=== PATIENT | male | born 1965 | race African-American/Black ===

== ENCOUNTER 2017-07-18 22:40 | Observation (INO) | payer SELFPAY ==
[2017-07-18] MEDS ORDERED: Aspirin Low Dose CHEW TAB* 81 MG PO ONE (22:52)
[2017-07-18] MEDS ORDERED: Warfarin TAB(*) 10 MG PO ONE (23:00)
[2017-07-18] MEDS ORDERED: Clopidogrel TAB* 75 MG PO ONE (23:00)
[2017-07-18] MEDS ORDERED: Metoprolol Tartrate TAB* 25 MG PO ONE (23:01)
[2017-07-18 23:21] LABS: Hematocrit 44 % (42-52); Hemoglobin 14.9 g/dl (14.0-18.0); Mean Corpuscular HGB Conc 34 g/dl (31-36); Mean Corpuscular Hemoglobin 35 pg (27-31); Mean Corpuscular Volume 102 fL (80-94); Mean Platelet Volume 10 um3 (7.4-10.4); Red Blood Count 4.29 10^6/ul (4.0-5.4); Red Cell Distribution Width 13 % (10.5-15); White Blood Count 5.1 10^3/ul (3.5-10.8)
[2017-07-18 23:35] LABS: Albumin 4.2 g/dL (3.2-5.2); BUN/Creatinine Ratio 15.8 (8-20); Calcium 9.4 mg/dL (8.6-10.3); EGFR African American 86.4 (>60); EGFR Non-African American 67.2 (>60); Globulin 3.7 g/dL (2-4); Potassium 3.4 mmol/L (3.5-5.0); Total Bilirubin 1.4 mg/dL (0.2-1.0); Total Protein 7.9 g/dL (6.4-8.9)
[2017-07-18 23:36] LABS: Troponin I 0.01 ng/mL (<0.04)
[2017-07-19] MEDS ORDERED: hydrALAZINE IV* 20 MG/ML VIAL IV SLOW PU ONE ×2 (00:37→01:59)
[2017-07-19] MEDS ORDERED: Ondansetron INJ* 2 MG/ML VIAL IV PRN (00:38)
[2017-07-19] MEDS ORDERED: Nicotine PATCH 21 MG/24 HR* PATCH TRANSDERM ONE (00:48)
[2017-07-19] MEDS ORDERED: Nicotine Inhaler* 10 MG AMP INH PRN (00:48)
[2017-07-19] MEDS ORDERED: Enoxaparin(*) 40 MG/0.4 ML SYR SUBCUT SCH (01:00)
[2017-07-19] MEDS ORDERED: hydrALAZINE IV* 20 MG/ML VIAL ONE (02:12)
--- NOTE | 2017-07-19 03:10 | HP ---
HISTORY AND PHYSICAL: DATE OF ADMISSION: 07/19/17 PRIMARY CARE PROVIDER: Previously, Dr. Smith, no longer followed. BRAKE REPAIRER HYDRAULIC: Previously, Dr. Osborne, last seen in 2013. HEALTHCARE PROXY: Two friends, Latisha Lundberg and Debbie Toribio. CODE STATUS: DNR. Discussed with patient. MOLST filled out. SOURCE OF INFORMATION: History obtained from interview with patient and his close friend, Latisha, review of past medical records. RELIABILITY: Fair. CHIEF COMPLAINT: Chest pressure. HISTORY OF PRESENT ILLNESS: This is a 51-year-old man with past medical history of CAD, stent to his LAD in 2005, and then again stent to lower branch of bifurcating second obtuse marginal in 2013, had been in his usual state of health; however, has discontinued all of his medications except for aspirin and Plavix, has been lost to medical care since the time of his last stenting in 2013. Four days prior to presentation, he was at work as a cook, felt overheated and stressed, developed chest pressure like a squeezing, substernal, not radiating, not associated with nausea, vomiting, or light-headedness and walked into the cooler, which helped but did not relieve the chest pressure. Attempted nitro sublingual without help. He says the pain only lasted for minutes; however, the story as indicated above would indicate that it lasted for longer with going into the cooler and then taking nitro as well. The following day, he had a similar episode at work where he felt overheated and stressed and again developed chest pressure, walked into the cooler with some improvement. He indicates that the chest pressure lasted for approximately 30 seconds. Two days prior to presentation, he had no additional symptoms and today again no additional symptoms; however, discussed symptomatology with his friend Latisha who encouraged him to present to the emergency room today. He denies any orthopnea or PND. No fevers, chills, shortness or breath, lightheadedness, nausea, or vomiting. There has been no changes in his medications except for discontinuation of his previous medications, which did include lisinopril, lovastatin, and atenolol as he only continues Plavix and aspirin at this time. PAST MEDICAL HISTORY: Includes CAD with LAD stent in 2005 and stent to the lower branch of bifurcating second obtuse marginal in 2013, hypertension, hyperlipidemia. MEDICATIONS: 1. Plavix 75. 2. Aspirin 81. 3. Nitro sublingual 0.4 mg as needed. ALLERGIES: No known drug allergies. FAMILY HISTORY: No history of CAD. Mother and father with hypertension. SOCIAL HISTORY: 1. Active tobacco use: One pack per day for 40 years. 2. Alcohol: Active alcohol use, 30 beers per week. Denied all illicits. Currently employed as a cook at [employer]. REVIEW OF SYSTEMS: As per HPI. Otherwise, all other systems negative. PHYSICAL EXAMINATION GENERAL: Appears stated age, interactive, pleasant, in no apparent distress. VITAL SIGNS: In the emergency room, 181/109, heart rate 82, respiratory rate 16 , 99% on room air, T-max 97.1. HEENT: Oropharynx is clear. He has moist mucous membranes. Poor dentition. NECK: Nonelevated JVD. No cervical or supraclavicular lymphadenopathy. LUNGS: Clear to auscultation. HEART: He has regular rate and rhythm. No murmurs, rubs, or gallops. ABDOMEN: Soft, nontender, nondistended. EXTREMITIES: Warm and well perfused without clubbing, cyanosis or edema. NEUROLOGIC: He is alert and oriented x3. He has no apparent anxiety, agitation , or depression. DIAGNOSTIC STUDIES/LAB DATA: Labs reviewed. Total bilirubin 1.4, AST 40, ALT 33. Troponin I 0.01. Lactic acid 1.5. Hemoglobin is 14.9 with a MCV of 102, platelets 141. Data reviewed. EKG is normal sinus rhythm, ventricular rate of 69, normal limit axis, normal R-wave progression, no ST or T-wave changes. Chest x-ray: No active cardiopulmonary disease on this author's read, office read is still pending. ASSESSMENT AND PLAN: This is a 51-year-old man with known history of coronary artery disease status post 2 stents, last 2013; uncontrolled hypertension; active tobacco use, presented to the hospital with several episodes of chest pressure concerning for unstable angina. 1. Unstable angina. Currently, chest pain and pressure have resolved. We will not heparinize at this time. We will cycle troponins and plan on x-ray of the chest tomorrow. Check lipids in the morning as well as add on hemoglobin A1C to ED labs. Certainly high risk for in-stent restenosis or progressive atherosclerotic disease in the setting of continued tobacco use, high alcohol use, as well as discontinuation of previous medications. The patient does indicate he has continued Plavix and aspirin, although had indicated to the ED physician that he was inconsistent with the administration of his Plavix. 2. Hypertension. Hydralazine IV 5 mg now. Restart lisinopril at a higher dose 20 mg tomorrow, likely needs to titrate with the addition of a beta- steve after the stress test. 3. Hyperlipidemia. Check fasting lipids in the morning. Suspect we will need reinstitution of statin, especially in the setting of known coronary artery disease. 4. Code status. DNR. MOLST filled out. [id number]/[facility] #: [id number] MTDPresley
[2017-07-19 05:27] LABS: HDL Cholesterol 35.6 mg/dL
--- NOTE | 2017-07-19 07:33 | RAD ---
INDICATION: Chest pain. COMPARISON: Comparison is made with a prior portable chest x-ray study from December 18, 2013. TECHNIQUE: A portable view of the chest was obtained. FINDINGS: The heart is within normal limits in size. The thoracic aorta appears mildly tortuous and ectatic. The lungs are clear. No pleural effusion is seen. IMPRESSION: NO EVIDENCE FOR ACUTE DISEASE.
[2017-07-19] MEDS ORDERED: Clopidogrel TAB* 75 MG PO SCH (09:00)
[2017-07-19] MEDS ORDERED: Lisinopril TAB* 10 MG PO SCH ×2 (09:00)
[2017-07-19] MEDS ORDERED: Aspirin EC Low Dose* 81 MG TAB.EC PO SCH (09:00)
--- NOTE | 2017-07-19 13:08 | RAD ---
Edited for charges. Indication: Chest pain. Myocardial perfusion scan was performed utilizing 1 day protocol. 10.6 mCi of technetium 99m tetrofosmin was injected for the rest portion of the study. 25.6 mCi of technetium 99m Myoview was then injected for the stress portion of study.. There is homogeneous distribution of the radiotracer throughout the left ventricle. No evidence of fixed or reversible perfusion defects identified. The ejection fraction at stress is 45%. No focal wall motion abnormality is noted. IMPRESSION: No evidence of fixed or reversible perfusion defect is identified. ASSESSMENT: Low risk Based on imaging criteria from ACC/AHA 2002 Guideline Update for the Management of Patients With Chronic Stable Angina Table 23. Noninvasive Risk Stratification. MTDD
[2017-07-19 15:16] VITALS: BP 153/96
[2017-07-19] MEDS ORDERED: Nicotine Patch Removal NOTE FOLLOW UP SCH (21:00)
--- NOTE | 2017-07-20 02:39 | DS ---
CC: Dr. Smith * DISCHARGE SUMMARY: DATE OF ADMISSION: 07/19/17 DATE OF DISCHARGE: 07/19/17 DISCHARGE DIAGNOSES: 1. Chest pain, acute coronary syndrome ruled out. 2. Uncontrolled hypertension. 3. Hyperlipidemia. SECONDARY DIAGNOSES: 1. Coronary artery disease, status post LAD stent in 2005 and a stent to the OM in 2013. 2. Hypertension. 3. Hyperlipidemia. MEDICATION LIST: 1. Aspirin 81 mg p.o. daily. 2. Plavix 75 mg p.o. daily. New medications: 1. Lisinopril 10 mg p.o. daily. 2. Lovastatin 20 mg p.o. daily. 3. Metoprolol tartrate 25 mg p.o. b.i.d. HOSPITAL COURSE: Mr. Sampson is a 51-year-old male with a past medical history as stated above that presented to the emergency room with complaints of chest pressure that he developed while he was working and felt overheated and stressed. The patient works as a cook at [employer] and states that he was feeling overwhelmed as they were short staffed. He states that he opened the fridge sitting front of it and had relief of his symptoms. Unfortunately, the patient has lost his insurance coverage so he has not followed with Dr. Osborne or Dr. Smith anymore, but he states that he continues to take aspirin and Plavix, but stopped taking all of his other medications. For more details of his presentation, I refer you to his history and physical. He was admitted to the telemetry floor where he had serial troponins that were negative. The patient underwent exercise Myoview stress test that showed no evidence of a fixed or reversible perfusion defect and ejection fraction was 45%. His laboratory tests showed triglycerides of 406, total cholesterol of 136, but his LDL could not be calculated due to his triglycerides. Also of note is the fact that on admission his blood pressure was 181/109. My impression is that his symptoms were likely secondary to uncontrolled hypertension. The patient was advised about the importance of compliance with treatment. He is aware of his blood pressure level and also about the elevation of his triglycerides. He is in agreement with taking medications from the 4-dollar list from [employer] and he will also be seen by social professionals to assist him with arrangements for insurance. The patient received dietary education. He also received tobacco cessation encouragement. He states that he has cut down to 5 cigarettes a week and he continues his efforts to quit smoking. He is medically stable to be discharged home today. PHYSICAL EXAMINATION: Vital Signs: Temperature 98.2, heart rate is 90, respiratory rate is 20, oxygen saturation is 100% on room air, blood pressure is 153/96. General: The patient is a pleasant, middle-aged gentleman, sitting up in bed, in no acute distress. CVS: Normal S1, S2. Regular rate and rhythm. Chest: Breath sounds present bilaterally with no added sounds. Extremities: No edema. Neuro: He is alert, awake, and oriented x3. Able to move all 4 extremities. DIET: Heart-healthy diet. ACTIVITY: As tolerated. DISPOSITION: To home. STATUS WHILE IN THE HOSPITAL: Observation. The patient was advised that if he continues to be noncompliant with his medications and if he continues to smoke, he is at a great risk for further heart disease, lung disease, cancer, and . He verbalized understanding of the risks. Please keep in mind this is a summarized version of this patient's hospital stay. If you need more information, please feel free to call me at [phone] or please obtain the full medical records. TIME SPENT: Approximately 45 minutes were spent to complete this discharge. [id number]/[facility] #: [id number] MTDPresley
--- NOTE | 2017-07-23 12:03 | ED ---
Bart Garcia Alfonso, scribed for Aydin Auguste MD on 07/18/17 at 2302 . HPI Chest Pain - HPI Summary HPI Summary: This patient is a 51 year old M presenting to [facility] accompanied by female with a chief complaint of CP since a few days ago. The CC is described as intermittent. The CP does not radiate. The patient rates the pain 5/10 in severity. Symptoms aggravated by stress and heat. Symptoms alleviated by nothing. Sx not alleviated by NTG. He reports medication noncompliance today. Tobacco abuse disorder. He drank ETOH tonight (2-3 drinks). PMHx includes CAD ( two ID). - History of Current Complaint Chief Complaint: EDChestPainROMI Time Seen by Provider: 07/18/17 22:52 Hx Obtained From: Patient Onset/Duration: Started Days Ago, Still Present Timing: Constant Initial Severity: Moderate Current Severity: Moderate Pain Intensity: 5 Pain Scale Used: 0-10 Numeric Aggravating Factor(s): Other: - Stress and heat Alleviating Factor(s): Nothing Associated Signs and Symptoms: Positive: Chest Pain - Allergy/Home Medications Allergies/Adverse Reactions: Allergies Allergy/AdvReac Type Severity Reaction Status Date / Time No Known Allergies Allergy Verified 07/18/17 22:48 PMH/Surg Hx/FS Hx/Imm Hx Endocrine/Hematology History: Denies: Hx Anticoagulant Therapy, Hx Blood Disorders, Hx Blood Transfusions, Hx Bone Marrow Disease, Hx Diabetes, Hx Systemic Lupus Erythematosus, Hx Sickle Cell Disease, Hx Thyroid Disease, Hx Anemia, Hx Unexplained Bleeding, Other Endocrine/Hematological Disorders Cardiovascular History: Reports: Hx Coronary Artery Disease, Hx Hypercholesterolemia, Hx Hypertension, Hx Myocardial Infarction Denies: Hx Aneurysm, Hx Angina, Hx Angioplasty, Hx Auto Implanted Cardiovert Defib, Hx Cardiac Arrest, Hx Cardiomegaly, Hx Congenital Heart Disease, Hx Congestive Heart Failure, Hx Deep Vein Thrombosis, Hx Embolism, Hx Hypotension, Hx Pacemaker/ICD, Hx Peripheral Vascular Disease, Hx Rheumatic Fever, Hx Syncope , Hx Valvular Heart Disease, Other Cardiovascular Problems/Disorders Respiratory History: Denies: Hx Asthma, Hx Chronic Bronchitis, Hx Chronic Obstructive Pulmonary Disease (COPD), Hx Cystic Fibrosis, Hx Lung Cancer, Hx Pleural Effusion, Hx Pneumonia, Hx Pulmonary Edema, Hx Pulmonary Embolism, Hx Seasonal Allergies, Hx Sleep Apnea, Other Respiratory Problems/Disorders GI History: Denies: Hx Cirrhosis, Hx Crohn's Disease, Hx Diverticulosis, Hx Gall Bladder Disease, Hx Gastroesophageal Reflux Disease, Hx Gastrointestinal Bleed, Hx Hiatal Hernia, Hx Irritable Bowel, Hx Jaundice, Hx Obstructive Bowel, Hx Ileostomy, Hx Pyloric Stenosis, Hx Ulcer, Other GI Disorders History: Denies: Hx Acute Renal Failure, Hx Benign Prostatic Hyperplasia, Hx Chronic Renal Failure, Hx Dialysis, Hx Kidney Infection, Hx Kidney Stones, Other Problems/Disorders Musculoskeletal History: Denies: Hx Arthritis, Hx Back Problems, Hx Bursitis, Hx Congenital Bone Abnormalities, Hx Fibromyalgia, Hx Gout, Hx Orthopedic Injury, Hx Osteoporosis, Hx Scoliosis, Hx Tendonitis, Other Musculoskeletal History Sensory History: Denies: Hx Cataracts, Hx Contacts or Glasses, Hx Eye Injury, Hx Eye Prosthesis, Hx Glaucoma, Hx Legally Blind, Hx Macular Degeneration, Hx Vision Problem, Hx Deafness, Hx Hearing Aid, Hx Hearing Problem, Other Sensory Impairments Opthamlomology History: Denies: Hx Cataracts, Hx Contacts or Glasses, Hx Eye Injury, Hx Eye Prosthesis, Hx Glaucoma, Hx Legally Blind, Hx Macular Degeneration, Hx Vision Problem, Other Sensory Impairments Neurological History: Denies: Hx Dementia, Hx Developmental Delay, Hx Headaches, Hx Migraine, Hx Nerve Disease, Hx Seizures, Hx Spinal Cord Injury, Hx Transient Ischemic Attacks (TIA), Other Neuro Impairments/Disorders Psychiatric History: Denies: Hx Anxiety, Hx Attention Deficit Hyperactivity Disorder, Hx Eating Disorder, Hx Depression, Hx Panic Disorder, Hx Post Traumatic Stress Disorder, Hx Inpatient Treatment, Hx Community Mental Health Tx, Hx Schizophrenia, Hx Bipolar Disorder, Hx Suicide Attempt, Hx of Violent Episodes Against Others, Hx Substance Abuse, Other Psychiatric Issues/Disorders - Cancer History Hx Chemotherapy: No Hx Radiation Therapy: No Hx Palliative Cancer Treatment: No - Surgical History Surgery Procedure, Year, and Place: 1981 lump removed from neck Hx Anesthesia Reactions: No Infectious Disease History: No Infectious Disease History: Denies: Hx Clostridium Difficile, Hx Hepatitis, Hx Human Immunodeficiency Virus (HIV), Hx of Known/Suspected MRSA, Hx Shingles, Hx Tuberculosis, Hx Known/ Suspected VRE, Hx Known/Suspected VRSA, History Other Infectious Disease, Traveled Outside the [place] in Last 30 Days - Family History Known Family History: Positive: Hypertension - Social History Alcohol Use: Daily Substance Use Type: Reports: None Hx Tobacco Use: Yes Type: Cigarettes Amount Used/How Often: one pack per month Have You Smoked in the Last Year: Yes Review of Systems Negative: Fever, Chills Negative: Erythema Negative: Sore Throat Positive: Chest Pain Negative: Shortness Of Breath, Cough Negative: Abdominal Pain, Vomiting, Nausea Negative: dysuria, hematuria Negative: Decreased ROM Negative: Rash Neurological: Other - Negative dizziness All Other Systems Reviewed And Are Negative: Yes Physical Exam Triage Information Reviewed: Yes Vital Signs On Initial Exam: Initial Vitals Temp Pulse Resp BP Pulse Ox 97.1 F 82 16 181/109 99 07/18/17 22:47 07/18/17 22:47 07/18/17 22:47 07/18/17 22:47 07/18/17 22:47 Vital Signs Reviewed: Yes Appearance: Positive: Well-Appearing, No Pain Distress, Well-Nourished Skin: Positive: Warm, Dry Head/Face: Positive: Normal Head/Face Inspection Eyes: Positive: Conjunctiva Clear ENT: Positive: Other - ETOH on breath Neck: Positive: Other: - Musculoskeletal ROM normal neck. (-) JVD, (-) Stridor, (-) Tracheal deviation Lymph: (-) Cervical adenopathy Respiratory/Lung Sounds: Positive: Other - Effort normal. (-) Respiratory distress, (-) Wheezes, (-) Rales Cardiovascular: Positive: Other - Rhythm regular, rate normal, Heart sounds normal; Intact distal pulses; The pedal pulses are 2+ and symmetric. Radial pulses are 2+ and symmetric. (-) Murmur Abdomen Description: Positive: Other: - Soft, (-) Tenderness, (-) Distension, (- ) Guarding, (-) Rebound Musculoskeletal: Negative: Edema Left, Edema Right Neurological: Positive: Alert, Oriented to Person Place, Time Psychiatric: Positive: Affect/Mood Appropriate Diagnostics - Vital Signs Vital Signs Temp Pulse Resp BP Pulse Ox 07/18/17 22:48 97.1 F 82 16 181/109 99 07/18/17 22:47 97.1 F 82 16 181/109 99 - Laboratory Lab Statement: Any lab studies that have been ordered have been reviewed, and results considered in the medical decision making process. - Radiology CXR Radiology Interpretation Completed By: Radiologist - Pending official interpretation from radiologist. See [facility]. - EKG 2248 Cardiac Rate: NL - BPM 69 EKG Rhythm: Sinus Rhythm EKG Interpretation: No STEMI. Chest Pain Course/Dx - Course Assessment/Plan: This patient is a 51 year old M presenting to [facility] accompanied by female with a chief complaint of CP since a few days ago. The CC is described as intermittent. The CP does not radiate. The patient rates the pain 5/10 in severity. Symptoms aggravated by stress and heat. Symptoms alleviated by nothing. Sx not alleviated by NTG. He reports medication noncompliance today. Tobacco abuse disorder. He drank ETOH tonight (2-3 drinks) . PMHx includes CAD (two ID). An EKG reveals NSR. CXR pending. Patient is signed out to Dr. Ghotra, pending disposition, awaiting labs. - Diagnoses Provider Diagnoses: Hypertensive urgency, Unstable angina, Noncompliance with medications Discharge - Discharge Plan Condition: Stable Disposition: OTHER Discharge Disposition Comment: Patient is signed out to Dr. Ghotra, pending disposition, awaiting labs. Referrals: Alen Smith MD [Primary Care Provider] - The documentation as recorded by the Bart lamas Alfonso accurately reflects the service I personally performed and the decisions made by me, Aydin Auguste MD.
== END 2017-07-19 16:11 | disposition home or self-care (01) ==
LOC: ED 22:40 → MEDTELE 07-19 00:38
PROVIDERS: ADMIT Internal Medicine; ATTEND Internal Medicine
DX: R07.89 Other chest pain (principal); I10 Essential (primary) hypertension; Z72.0 Tobacco use; E78.00 Pure hypercholesterolemia, unspecified; Z79.01 Long term (current) use of anticoagulants; I25.10 Atherosclerotic heart disease of native coronary artery without angina pectoris; Z95.5 Presence of coronary angioplasty implant and graft; Z79.899 Other long term (current) drug therapy
CPT/HCPCS: 36415; 71010; 78452; 80053; 80061; 83036; 83605; 84484; 85025; 87040; 93005; 93017; 96374; 99283; A9270-GY; A9502; G0378; J0360; J1650